=== PATIENT | male | born 1990 | race Caucasian/White ===

== ENCOUNTER 2017-04-25 18:09 | Emergency (ER) | payer OTHER, BC ==
[2017-04-25] MEDS ORDERED: fentaNYL 100 MCG/2 ML INJECTION (J3010) As Ordered (18:16)
[2017-04-25] MEDS ORDERED: ISOVUE-370 76% 100ML VIAL (Q9967) As Ordered (18:16)
[2017-04-25] MEDS: fentaNYL 100 MCG/2 ML INJECTION (J3010) IV ×2 (18:18→19:15)
[2017-04-25 18:49] LABS: ABG HCO3 20.5 MEQ/L (22.0-26.0); ABG PARTIAL PRESSURE CO2 35.8 mmHg (35.0-45.0); ABG STANDARD HCO3 21.1 MEQ/L (22.0-26.0); ABG TOTAL CO2 21.6 MEQ/L (22.0-29.0); ABG pH (ARTERIAL) 7.375 UNITS (7.350-7.450)
[2017-04-25 19:12] LABS: MEAN CORPUSCULAR HEMOGLOBIN 31.5 pg (27.0-33.0); MEAN CORPUSCULAR HGB CONC 36.2 g/dl (32.0-36.5); PLATELET COUNT, AUTOMATED 309 10^3/uL (150-450); RED CELL DISTRIBUTION WIDTH 11.4 % (11.5-14.5); WHITE BLOOD COUNT 19.9 10^3/uL (4.0-10.0)
[2017-04-25 19:22] LABS: INR 1.11
[2017-04-25] MEDS: ONDANSETRON 4MG/2ML VIAL (J2405) IV (19:22)
[2017-04-25] MEDS: ADACEL/BOOSTRIX VACCINE (DIPHTH/PERTUSS/ACELL/TETANUS)0.5ML SYR (90715) IM (19:34)
[2017-04-25 19:42] LABS: ALKALINE PHOSPHATASE 86 U/L (45-117); ALT/SGPT 138 U/L (12-78); AMYLASE 50 U/L (25-115); AST/SGOT 86 U/L (7-37); BILIRUBIN,DIRECT 0.1 MG/DL (0.0-0.2); BILIRUBIN,TOTAL 0.5 MG/DL (0.2-1.0); BLOOD UREA NITROGEN 18 MG/DL (7-18); CALCIUM LEVEL 7.9 MG/DL (8.5-10.1); CHLORIDE LEVEL 105 MEQ/L (98-107); CREATININE FOR GFR 0.96 MG/DL (0.70-1.30); GLUCOSE, FASTING 119 MG/DL (70-105); POTASSIUM SERUM 3.5 MEQ/L (3.5-5.1); SODIUM LEVEL 140 MEQ/L (136-145); TOTAL PROTEIN 6.5 GM/DL (6.4-8.2)
[2017-04-25 19:55] LABS: LACTIC ACID SEPSIS PROTOCOL 2.2 MMOL/L (0.4-2.0)
[2017-04-25 20:04] LABS: ADD MANUAL DIFFER YES; DIFF SLIDE NUMBER 216; POSITIVE DIFF POS FLAG
[2017-04-25 20:16] LABS: METHADONE URINE NEGATIVE (NEGATIVE)
[2017-04-25 20:35] LABS: ALBUMIN 3.8 GM/DL (3.2-5.2); ALBUMIN/GLOBULIN RATIO 1.41 (1.00-1.93); ANION GAP 9 MEQ/L (8-16); CARBON DIOXIDE LEVEL 26 MEQ/L (21-32)
== END 2017-04-25 20:01 | disposition short-term general hospital (02) ==
LOC: M ED 18:09
DX: S09.93XA Unspecified injury of face, initial encounter (principal); S27.399A Other injuries of lung, unspecified, initial encounter; W22.8XXA Striking against or struck by other objects, initial encounter; Y92.79 Other farm location as the place of occurrence of the external cause; Y93.89 Activity, other specified; Y99.0 Civilian activity done for income or pay; Z97.4 Presence of external hearing-aid
CPT/HCPCS: 90715

== ENCOUNTER → 2019-09-06 | Outpatient (REF) | payer OTHER ==
[2019-09-06 11:14] LABS: SEMEN APPEARANCE OPAQUE (OPAQUE); SEMEN VISCOSITY LIQUID (LIQUID); SEMEN VOLUME 7.5 ml (2.0-5.0); SEMEN pH 8.5 (7.0-8.0); WBC CONCENTRATION >1 M/ml (<=1 M/ml)
[2019-09-06 11:15] LABS: SPERM CONCENTRATION 36.9 M/ml (>=15.0)
== END ==
LOC: M SFHCWAGY 10:36
PROVIDERS: ATTEND Nurse Practitioner Women's Health
DX: Z31.9 Encounter for procreative management, unspecified (principal)

== ENCOUNTER → 2021-03-12 | Outpatient (REF) | payer BC ==
[2021-03-12 12:51] LABS: HEMATOCRIT 47.7 % (42.0-52.0); MEAN CORPUSCULAR HGB CONC 35.6 g/dl (32.0-36.5); MEAN CORPUSCULAR VOLUME 89.7 fl (80.0-96.0); PLATELET COUNT, AUTOMATED 263 10^3/uL (150-450); RED BLOOD COUNT 5.32 10^6/uL (4.30-6.10); WHITE BLOOD COUNT 4.8 10^3/uL (4.0-10.0)
[2021-03-12 13:22] LABS: ALT/SGPT 28 U/L (12-78); BILIRUBIN,TOTAL 0.9 MG/DL (0.2-1.0); BLOOD UREA NITROGEN 16 MG/DL (7-18); CALCIUM LEVEL 9.8 MG/DL (8.5-10.1); CARBON DIOXIDE LEVEL 28 MEQ/L (21-32); CHLORIDE LEVEL 107 MEQ/L (98-107); CHOLESTEROL LEVEL 178 MG/DL (<200); CREATININE FOR GFR 0.86 MG/DL (0.70-1.30); GLOMERULAR FILTRATION RATE > 60.0 (>60); GLUCOSE, FASTING 95 MG/DL (70-100); HDL CHOLESTEROL 53 MG/DL (>40); NON-HDL-C 125 MG/DL; POTASSIUM SERUM 4.8 MEQ/L (3.5-5.1); SODIUM LEVEL 140 MEQ/L (136-145); TRIGLYCERIDES LEVEL 60 MG/DL (<150)
[2021-03-12 13:23] LABS: ALBUMIN 4.1 GM/DL (3.2-5.2); CHOLESTEROL RISK RATIO 3.358 (<5); FOLATE 16.4 NG/ML; FREE T4 0.94 NG/DL (0.76-1.46); LDL CHOLESTEROL 113 MG/DL (<100); TOTAL 25(OH) VITAMIN D 50.6 NG/ML (30.0-100.0); VITAMIN B12 LEVEL 903 PG/ML
== END ==
LOC: M SFHCADAM 08:52
PROVIDERS: ATTEND Physician Assistant
DX: N46.9 Male infertility, unspecified (principal); M54.16 Radiculopathy, lumbar region; Z13.220 Encounter for screening for lipoid disorders; Z13.1 Encounter for screening for diabetes mellitus; E66.3 Overweight; H91.93 Unspecified hearing loss, bilateral

== ENCOUNTER → 2021-05-09 | Outpatient (REF) | payer BC ==
[2021-05-09 10:32] LABS: SEMEN APPEARANCE OPAQUE (OPAQUE); SEMEN VISCOSITY LIQUID (LIQUID); SEMEN VOLUME 6.1 ml (2.0-5.0); SPERM CONCENTRATION 30.6 M/ml (>=15.0); WBC CONCENTRATION <=1 M/ml (<=1 M/ml)
== END ==
LOC: M LAB REF 10:22
PROVIDERS: ATTEND Urology
DX: N46.8 Other male infertility (principal)

== ENCOUNTER → 2022-01-05 | Outpatient (REF) | payer BC | LOC: M LAB REF 16:58 | PROVIDERS: ATTEND Physician Assistant | DX: J02.9 Acute pharyngitis, unspecified (principal) ==

== ENCOUNTER → 2023-07-24 | Outpatient (CLI) | payer BC | LOC: M ADAMS 10:35 | PROVIDERS: ATTEND Physician Assistant | DX: M25.511 Pain in right shoulder (principal) ==

== ENCOUNTER → 2023-09-15 | Outpatient (CLI) | payer BC | LOC: M PLAIMG 06:35 | PROVIDERS: ATTEND Physician Assistant | DX: M25.511 Pain in right shoulder (principal) ==

== ENCOUNTER → 2025-03-29 | Outpatient (REF) | payer BC ==
[2025-03-29 13:54] LABS: BASO # 0.0 10^3/uL (0.0-0.2); BASO % 0.8 % (0.0-1.0); EOS # 0.1 10^3/uL (0.0-0.5); EOS % 2.0 % (0.0-3.0); LYMPH # 2.0 10^3/uL (1.5-5.0); LYMPH % 39.8 % (24.0-44.0); MONO # 0.6 10^3/uL (0.0-0.8); MONO % 12.6 % (2.0-8.0); NEUTROPHILS # 2.2 10^3/uL (1.5-8.5); NEUTROPHILS % 44.6 % (36.0-66.0); PLATELET COUNT, AUTOMATED 270 10^3/uL (150-450)
[2025-03-29 13:57] LABS: ALT/SGPT 29 U/L (7.0-40); AST/SGOT 30 U/L (<34); CALCIUM LEVEL 10.0 MG/DL (8.5-10.1); CARBON DIOXIDE LEVEL 28 MMOL/L (20-31); CHLORIDE LEVEL 103 MMOL/L (98-107); CHOLESTEROL LEVEL 160 MG/DL (<200); CHOLESTEROL RISK RATIO 3.01 (<5); CREATININE FOR GFR 0.78 MG/DL (0.70-1.30); GLOMERULAR FILTRATION RATE > 90.0 (>60); LDL CHOLESTEROL 95.8 MG/DL (<100); NON-HDL-C 107.0 MG/DL; POTASSIUM SERUM 5.0 MMOL/L (3.5-5.1); SODIUM LEVEL 140 MMOL/L (136-145); TRIGLYCERIDES LEVEL 56 MG/DL (<150)
[2025-03-29 13:58] LABS: FREE T4 1.26 NG/DL (0.89-1.76)
[2025-03-29 14:04] LABS: ESTIMATED AVERAGE GLUCOSE 91.0 MG/DL (60-110)
== END ==
LOC: M SFHCADAM 08:23
PROVIDERS: ATTEND Physician Assistant
DX: Z00.00 Encounter for general adult medical examination without abnormal findings (principal); R53.82 Chronic fatigue, unspecified; Z13.1 Encounter for screening for diabetes mellitus; Z13.220 Encounter for screening for lipoid disorders